=== PATIENT | female | born 1955 | race Caucasian/White ===

== ENCOUNTER 2019-03-12 23:58 | Emergency (ER) | payer MEDICARE, MEDICAID ==
[~2019-03-12] VITALS: Ht 160 cm; Wt 134.0 kg
[2019-03-13 01:00] VITALS: BP 126/61
== END 2019-03-13 01:06 | disposition home or self-care (01) ==
LOC: ED 23:58
DX: S91.202A Unspecified open wound of left great toe with damage to nail, initial encounter (principal); E11.9 Type 2 diabetes mellitus without complications; J44.9 Chronic obstructive pulmonary disease, unspecified; W22.8XXA Striking against or struck by other objects, initial encounter; Y92.481 Parking lot as the place of occurrence of the external cause